=== PATIENT | female | born 1975 | race Caucasian/White ===

== ENCOUNTER 2017-02-22 08:04 | Emergency (ER) | payer OTHER ==
[~2017-02-22] VITALS: Ht 165.1 cm; Wt 66.0 kg
[2017-02-22] MEDS ORDERED: morphine SULFATE 10 MG/ML, 1ML ONE (08:31)
[2017-02-22] MEDS ORDERED: ONDANSETRON 2MG/ML, 2ML ONE (08:31)
[2017-02-22] MEDS ORDERED: SODIUM CHLORIDE FLUSH 10ML SYR IVF ONE (09:00)
[2017-02-22] MEDS ORDERED: ONDANSETRON 2MG/ML, 2ML IVPush ONE (09:00)
[2017-02-22] MEDS ORDERED: SODIUM CHLORIDE 0.9% 1,000ML IVBOLUS ONE (09:00)
[2017-02-22] MEDS ORDERED: morphine SULFATE 10 MG/ML, 1ML IVPush PRN (09:00)
[2017-02-22 09:18] LABS: HCG UR LOT HCG7030192
[2017-02-22 09:18] LABS: HEMATOCRIT 36.8 % (34.6-47.8); HEMOGLOBIN 12.3 g/dL (11.7-16.4); WHITE BLOOD COUNT 7.5 x10^3/uL (3.4-10)
[2017-02-22 09:26] LABS: HCG UR OBC PASS
[2017-02-22 09:29] LABS: ASPARTATE AMINO TRANSFERASE 31 U/L (15-37); BLOOD UREA NITROGEN 20 mg/dL (7-18)
[2017-02-22 10:03] LABS: DIFF TOTAL CELLS COUNTED 100 CELL DIFF
[2017-02-22] MEDS ORDERED: HYDROmorphone 1 MG/ML, 1ML ONE (10:09)
[2017-02-22 10:11] LABS: VERIFY COUNTS? YES
[2017-02-22] MEDS ORDERED: HYDROmorphone 1 MG/ML, 1ML IVPush PRN (10:30)
[2017-02-22 12:49] LABS: PATH.CAST-FLAG NOT PRESENT; SPERM-FLAG NOT PRESENT; SRC-FLAG NOT PRESENT; XTAL-FLAG NOT PRESENT; YLC-FLAG NOT PRESENT
[2017-02-22 13:40] VITALS: BP 123/78
== END 2017-02-22 13:45 | disposition home or self-care (01) ==
LOC: ED 08:39
DX: N13.2 Hydronephrosis with renal and ureteral calculous obstruction (principal); Z90.49 Acquired absence of other specified parts of digestive tract
CPT/HCPCS: 36415; 74176; 80053; 81001; 81025; 83690; 85025; 87077; 87086; 96361; 96374; 96375; 99285; J1170; J2270; J2405; J7030; 87186